=== PATIENT | male | born 1965 | race Caucasian/White ===

== ENCOUNTER 2016-11-20 14:55 | Inpatient (IN) | payer MEDICAID ==
[~2016-11-20] VITALS: Ht 170.2 cm; Wt 117.0 kg
--- NOTE | 2016-11-20 16:19 | NUR ---
AWAKE ALERT ORIENTED, STATED HAD BUG BITE ON THURSDAY TO LT INGUINAL AREA ,NOW SWOLLED AND POSSIBLE FORMING ABSCESS,PAINFUL ,
[2016-11-20 17:28] LABS: CALCIUM 8.9 mg/dL (8.5-10.1); CARBON DIOXIDE 27.1 mmol/L (21-32); CHLORIDE SERUM 100 mmol/L (98-107); CREATININE SERUM 1.3 mg/dL (0.7-1.3); GFR1 > 60 mL/min; GLUCOSE SERUM 153 mg/dL (74-106); POTASSIUM SERUM 3.9 mmol/L (3.5-5.1); SODIUM SERUM 134 mmol/L (136-145)
[2016-11-20 17:33] LABS: ALBUMIN 3.3 g/dL (3.4-5.0); ALKALINE PHOSPHATASE 80 U/L (46-116); ALT/SGPT 23 U/L (16-63); AST/SGOT 11 U/L (15-37); BILIRUBIN TOTAL 1.7 mg/dL (0.20-1.00)
[2016-11-20 17:34] LABS: PLATELET COUNT 217 x10^3mcL (130-400); RED CELL DISTRIBUTION WIDTH 12.5 % (11.5-14.5)
--- NOTE | 2016-11-20 17:35 | NUR ---
IV ESTABLISHED, BLOOD DRAWN EARLIER BY LAB,
--- NOTE | 2016-11-20 17:38 | NUR ---
ANTIBIOTICS STARTED CLEAOCIN,
[2016-11-20 17:57] LABS: BAND NEUTROPHIL 0 % (0-10); BASOPHIL 0 % (0-2); MONOCYTE 5 % (0-7); SEGMENTED NEUTROPHILS 87 % (37-75); rbc morphology (normal/abnorm) NORMAL (NORMAL)
[2016-11-20 17:58] LABS: PLATELET MORPHOLOGY PLATELETS NORMAL
[2016-11-20 19:40] LABS: CHOLESTEROL/HDL RATIO 3.5; MAGNESIUM 2.1 mg/dL (1.8-2.4); PHOSPHOROUS 3.3 mg/dL (2.5-4.9)
[2016-11-20 19:46] LABS: T3 TOTAL 1.05 ng/mL
[2016-11-20 20:14] LABS: FREE T4 1.04 ng/dL (0.76-1.46); FREE THYROXINE INDEX 2.6 ug/dL (1.4-4.5); T4(THYROXINE) 7.7 ug/dL (4.7-13.3)
--- NOTE | 2016-11-20 21:14 | NUR ---
REPORT GIVEN TO THERESA
--- NOTE | 2016-11-20 21:33 | NUR ---
REC'D PT FROM ER VIA [facility]. PT IS AAOX4. TELE #3 ST WITH ELEVATED T-WAVE. JJ=[id number]. LUNG SOUNDS CLEAR. NO SOB NOTED. CELLULITIS NOTED TO LEFT GROIN. PICTURE TAKEN. IV NOTED TO LH. INTACT AND PATENT. ORIENTED PT TO CALL LIGHT. BED IN LOWEST. WILL ENDORSE TO PRIMARY RN.
[2016-11-20 21:47] VITALS: BP 148/79
[2016-11-20 22:00] VITALS: BP 140/67
--- NOTE | 2016-11-20 23:30 | NUR ---
STARTED ON IVF NS AT 100CC/HR VIA PERIPHERAL LINE AT THE LEFT HAND TOLERATING WELL. IV SITE CLEAR AND INTACT. NO S/S OF INFILTRATION.
--- NOTE | 2016-11-21 00:50 | NUR ---
STARTED ON ATB IVPB FOR MANAGEMENT OF LEFT GROIN CELLULITIS WITHOUT ADVERSE REACTION NOTED.
[2016-11-21 06:22] LABS: PLATELET COUNT 211 x10^3mcL (130-400); RED CELL DISTRIBUTION WIDTH 12.4 % (11.5-14.5)
[2016-11-21 06:23] LABS: CALCIUM 8.9 mg/dL (8.5-10.1); CARBON DIOXIDE 27.6 mmol/L (21-32); CHLORIDE SERUM 101 mmol/L (98-107); CREATININE SERUM 1.1 mg/dL (0.7-1.3); GFR1 > 60 mL/min; GLUCOSE SERUM 165 mg/dL (74-106); POTASSIUM SERUM 4.4 mmol/L (3.5-5.1); SODIUM SERUM 138 mmol/L (136-145)
--- NOTE | 2016-11-21 06:25 | NUR ---
BLOOD SUGAR CHECKED 146MG/DL. NO INSULIN COVERAGE PER PROTOCOL INSTRUCTED TO BE NPO FOR POSSIBB SURGERY TODAY. NO ADVERSE REACTION NOTED FROM ATB THERAPY. URINE SPECIMEN COLLECTED FOR UA AND SENT TO LAB. ALL NEEDS ATTENDED.
[2016-11-21 07:22] VITALS: BP 134/81
--- NOTE | 2016-11-21 07:30 | NUR ---
PT RECEIVED FROM NIGHT NURSE IN NO ACUTE DISTRESS. PT ASLEEP IN BED. RESPIRATIONS EVEN AND UNLABORED. FLUIDS RUNNING AT BEDSIDE. BED IN LOWEST POSITION. CALL LIGHT WITHIN REACH. WILL CONTINUE TO MONITOR.
[2016-11-21 09:39] LABS: BAND NEUTROPHIL 38 % (0-10); BASOPHIL 0 % (0-2); MONOCYTE 17 % (0-7); SEGMENTED NEUTROPHILS 38 % (37-75)
[2016-11-21 09:41] LABS: PLATELET MORPHOLOGY PLATELETS NORMAL; rbc morphology (normal/abnorm) NORMAL (NORMAL)
[2016-11-21 09:44] VITALS: BP 135/88
[2016-11-21 11:05] LABS: UA SPECIFIC GRAVITY 1.025 (1.005-1.035); microscopic required? YES; urine erythrocyte NEGATIVE (NEGATIVE)
--- NOTE | 2016-11-21 13:17 | NUR ---
PT IS SITTING UP IN BED IN NO ACUTE DISTRESS. FAMILY AT BEDSIDE. IVF INFUSING. STATES PAIN IS TOLERABLE, RATES PAIN 2/10. BED IS IN LOWEST POSITION. CALL LIGHT WITHIN REACH. WILL CONTINUE TO MONITOR.
[2016-11-21 13:30] VITALS: BP 147/86
[2016-11-21 17:53] VITALS: BP 114/71
--- NOTE | 2016-11-21 19:05 | NUR ---
PT RESTING IN BED. NO ACUTE DISTRESS. C/O MILD L GROIN DISCOMFORT BUT TOLERABLE AT THIS TIME. REDNESS AND SWELLING TO L GROIN, NO DRAINAGE. LADIES SUIT OPERATOR. IVF INFUSING. BED IN LOWEST POSITION, CALL LIGHT WITHIN REACH. WILL ENDORSE TO INCOMING SHIFT.
--- NOTE | 2016-11-21 19:10 | NUR ---
NURSING CO-SIGN THE DOCUMENTATION ENTERED BY THE RN SARAH HAS BEEN REVIEWED. REVIEWED/CO-SIGNED BY: Ginger Shultz DOCUMENTATION DONE BY: ROSALIA REYNA
--- NOTE | 2016-11-21 19:30 | NUR ---
PT SI ALERT AND ORIENTED X 4. PLEASANT AND COOPERATIVE.CLEAR LUNG SOUNDS ON AUSCULTATIONS BILATERALLY. ROOM AIR. CXR- CARDIOMEGALY. STILL HAS IV NS AT 100 ML PER HOUR INFUSING WELL IN THE LEFT HAND. STILL GETTING CLEOCIN AND LEVAQUIN IVPB. WITHOUT ADVERSE REACTION NOTED. NOTED LEFT INNER GROIN AREA CELLULITIS REDDISH, INFLAMED. APPLIED TOPICAL CREAM. PT ABLE TO AMBULATE. WILL MONITOR.
--- NOTE | 2016-11-21 20:30 | NUR ---
DR. SCHOFIELD CAME AND CONSULTED PT AND LOOK AT THE LEFT GROIN CELLULITS THAT PT SPECIFIED THAT IT WAS BITTEN BY SPIDER. DR. SCHOFIELD COLLECTED ABSCESS SPECIMEN FROM THE SITE AND OBTAINED SMALL AMOUNT AND WAS SENT IT TO LAB FOR ABSCESS CULTURE AND GRAM STAIN BY ASPIRATING SOME DRAINAGE FROM THE SITE. PT TOLERATED WELL.
--- NOTE | 2016-11-21 21:31 | NUR ---
PT C/O MODERATE LEFT GROIN CELLULITIS PAIN 11/06. MEDICATED WITH MORPHINE 2MG IVPUSH. WILL MONITOR.
[2016-11-21 21:58] VITALS: BP 135/75
--- NOTE | 2016-11-22 05:26 | NUR ---
PT IS NPO FOR THE PROCEDURE THIS MORNING. I AND D FO THE ABCESS OF LEFT GROIN AREA. STILL HAS IV NS AT 100 ML PER HOUR INFUSING WELL. RESTARTED ANOTHER IV IN THE RIGHT WRIST. ANGIOCATH GUAGE 20. RESTARTED IV NS AT 100 ML PER HOUR INFUSING WELL. WILL MONITOR.
[2016-11-22 05:46] VITALS: BP 131/78
[2016-11-22 07:09] LABS: BASOPHIL % 1.2 % (0-2); PLATELET COUNT 224 x10^3mcL (130-400); RED CELL DISTRIBUTION WIDTH 12.1 % (11.5-14.5)
--- NOTE | 2016-11-22 07:30 | NUR ---
PT RECEIVED FROM NIGHT NURSE IN NO ACUTE DISTRESS. RESPIRATIONS EVEN AND UNLABORED. PT SLEEPING IN BED. IVF INFUSING AT BEDSIDE. BED IN LOWEST POSITION. CALL LIGHT WITHIN REACH. WILL CONTINUE TO MONITOR.
[2016-11-22 08:00] VITALS: BP 150/82
[2016-11-22 08:37] LABS: CALCIUM 8.4 mg/dL (8.5-10.1); CARBON DIOXIDE 27.9 mmol/L (21-32); CHLORIDE SERUM 103 mmol/L (98-107); CREATININE SERUM 0.9 mg/dL (0.7-1.3); GFR1 > 60 mL/min; GLUCOSE SERUM 135 mg/dL (74-106); POTASSIUM SERUM 4.3 mmol/L (3.5-5.1); SODIUM SERUM 135 mmol/L (136-145)
[2016-11-22 09:17] VITALS: BP 134/81
[2016-11-22 12:10] VITALS: BP 136/83
--- NOTE | 2016-11-22 13:50 | NUR ---
PT IS ASLEEP IN BED IN NO ACUTE DISTRESS. RESPIRATIONS EVEN AND UNLABORED. FLUIDS INFUSING AT BEDSIDE. BED IN LOWEST POSITION. CALL LIGHT WITHIN REACH. WILL CONTINUE TO MONITOR.
--- NOTE | 2016-11-22 16:11 | NUR ---
PT TAKEN DOWN TO OR BY OR NURSE VIA GOURNEY IN NO ACUTE DISTRESS.
--- NOTE | 2016-11-22 18:20 | NUR ---
UNABLE TO INSTRUCT PT ON INCENTIVE SPIROMETER DUE TO PT IN SURGERY AT THIS TIME, INCENTIVE SPIROMETER LEFT AT BED SIDE, WILL RETURN FOR TEACHING AND PROPER DEMONSTRATION.
[2016-11-22 18:45] VITALS: BP 146/89
--- NOTE | 2016-11-22 18:45 | NUR ---
PT BACK FROM OR. AWAKE, ALERT, AND ORIENTED. WITH PACKING, FLUFF DRESSING TO L GROIN, SLIGHTLY OPEN. C/O 6/10 PAIN, WILL MEDICATE ORDERED. VS: TEMP 98.7, RR 18, BP 146/89 (106), HR 92, O2 SAT 97% ON RA. BED IN LOWEST POSITION, CALL LIGHT WITHIN REACH. WILL CONTINUE TO MONITOR.
--- NOTE | 2016-11-22 20:14 | NUR ---
PT CURRENTLY RESTING IN BED, NO ACUTE DISTRESS. A/O X4. TELE #3 SHOWING SINUS RHYTHM, DENIES CHEST PAIN. PULSES PALPABLE IN ALL EXTREMITIES, LEFT GROIN EDEMA NOTED. LUNG SOUNDS CTA BILATERALLY. BOWEL SOUNDS ACTIVE, LAST BM 11/21/16. VOIDING WELL. AMBULATORY. S/P LEFT GROIN I&D, DRESSING INTACT, SMALL SEROSANGUINOUS DRAINAGE NOTED. DENIES PAIN AT THIS TIME. IV PATENT AND INTACT. BED IN LOWEST POSITION, SIDE RAILS UP X2, SCDS IN PLACE, CALL LIGHT WITHIN REACH. WILL CONTINUE TO MONITOR.
[2016-11-22 21:05] VITALS: BP 133/78
[2016-11-23 06:03] VITALS: BP 125/76
--- NOTE | 2016-11-23 06:03 | NUR ---
PT SLEPT PERIODICALLY THROUGHOUT NIGHT, NO ACUTE DISTRESS. ALL NEEDS MET AND ATTENDED TO. NO SIGNIFICANT CHANGES. IV PATENT AND INTACT. MEDICATED PAIN PER EMAR. BED IN LOWEST POSITION, SIDE RAILS UP X2, SCDS IN PLACE, CALL LIGHT WITHIN REACH. WILL ENDORSE CARE TO ONCOMING NURSE.
[2016-11-23 06:49] LABS: CALCIUM 8.7 mg/dL (8.5-10.1); CARBON DIOXIDE 27.5 mmol/L (21-32); CHLORIDE SERUM 101 mmol/L (98-107); CREATININE SERUM 0.9 mg/dL (0.7-1.3); GFR1 > 60 mL/min; GLUCOSE SERUM 132 mg/dL (74-106); POTASSIUM SERUM 4.1 mmol/L (3.5-5.1); SODIUM SERUM 136 mmol/L (136-145)
[2016-11-23 06:57] LABS: BASOPHIL % 0.9 % (0-2); PLATELET COUNT 259 x10^3mcL (130-400); RED CELL DISTRIBUTION WIDTH 12.1 % (11.5-14.5)
--- NOTE | 2016-11-23 07:25 | NUR ---
PT RECEIVED FROM NIGHT NURSE IN NO ACUTE DISTRESS. PT RESTING IN BED. RESPIRATIONS EVEN AND UNLABORED. DENIES PAIN AT THIS TIME. BED IN LOWEST POSITION, CALL LIGHT WITHIN REACH. IVF INFUSING AT BEDSIDE. WILL CONTINUE TO MONITOR.
[2016-11-23 08:00] VITALS: BP 148/82
[2016-11-23 09:10] VITALS: BP 131/84
--- NOTE | 2016-11-23 10:30 | NUR ---
L GROIN SURGICAL SITE IRRIGATED WITH NS AND REPACKED, DRESSING APPLIED ORDERED. C/D/I. PT TOLERATED WELL. WILL CONTINUE TO MONITOR.
--- NOTE | 2016-11-23 11:00 | NUR ---
DR. DAN AT BEDSIDE.
--- NOTE | 2016-11-23 13:20 | NUR ---
PT IS SITTING UP IN CHAIR EATING IN NO ACUTE DISTRESS. RESPIRATIONS EVEN AND UNLABORED. STATES HE HAS NO PAIN AT THIS TIME. IVF INFUSING. CALL LIGHT WITHIN REACH. WILL CONTINUE TO MONITOR
[2016-11-23 16:05] VITALS: BP 123/71
--- NOTE | 2016-11-23 18:57 | NUR ---
PT SITTING UP IN CHAIR EATING DINNER IN NO ACUTE DISTRESS. RESPIRATIONS EVEN AND UNLABORED ON RA. DENIES PAIN AT THIS TIME. CALL LIGHT WITHIN REACH. IVF INFUSING. WILL ENDORSE TO NIGHT NURSE.
--- NOTE | 2016-11-23 20:07 | NUR ---
PT CURRENTLY SITTING UP IN CHAIR, NO ACUTE DISTRESS. A/O X4. NO TELE, MED/SURG. DENIES CHEST PAIN. PULSES PALPABLE IN ALL EXTREMITIES, LEFT GROIN EDEMA NOTED. LUNG SOUNDS CTA BILATERALLY, DENIES SOB. BOWEL SOUNDS ACTIVE, LAST BM 11/23/16. VOIDING WELL. AMBULATORY. S/P LEFT GROIN I&D, DRESSING INTACT. DENIES PAIN AT THIS TIME. IV PATENT AND INTACT. BED IN LOWEST POSITION, SIDE RAILS UP X2, SCDS IN PLACE, CALL LIGHT WITHIN REACH. WILL CONTINUE TO MONITOR.
[2016-11-23 21:01] VITALS: BP 131/86
--- NOTE | 2016-11-23 22:29 | NUR ---
LEFT GROIN DRESSING CHANGE APPLIED ORDERED. PT TOLERATED PROCEDURE WELL. WILL CONTINUE TO MONITOR.
[2016-11-24 05:27] VITALS: BP 136/90
[2016-11-24 07:22] LABS: BASOPHIL % 0.7 % (0-2); PLATELET COUNT 278 x10^3mcL (130-400); RED CELL DISTRIBUTION WIDTH 12.2 % (11.5-14.5)
--- NOTE | 2016-11-24 07:30 | NUR ---
PT RECEIVED AAOX4, CONVERSING WELL IN FULL SENTENCES. RESP EVEN AND UNLABORED ON RA. DENIES ANY SOB OR COUGH. DENIES ANY CP OR PRESSURE. IV ON RFA INTACT, INFUSING NS AT 100ML/HR. ABD ROUND/SOFT WITH ACTIVE BS IN ALL QUADS. PT REPORTS FORMED BM THIS AM. VOIDING WELL WITH URINAL, CLEAR YELLOW URINE. AMBULATING INDEPENDENTLY. DENIES ANY PAIN OR DISCOMFORT AT THIS TIME. CALL LIGHT WITHIN REACH. WILL CONTINUE TO MONITOR.
[2016-11-24 09:40] VITALS: BP 151/87
--- NOTE | 2016-11-24 11:12 | NUR ---
DRESSING CHANGE ON LEFT GROIN DONE ORDERED. PREMEDICATED WITH NORCO ORDERED PRN, SEE EMAR. OLD DRESSING NOTED WITH MODERATE AMOUNT OF SEROSANGUINOUS DRAINAGE ON ABD PAD. OLD PACKING REMOVED. REAPPLIED NEW IODOFORM PACKING, DRY GAUZE, AND COVERED WITH DRY DRESSING. PT TOLERATED WELL WITHOUT COMPLAINTS. BASIC WOUND CARE TEACHING DONE, PT VERBALIZED UNDERSTANDING OF TEACHINGS. ALL QUESTIONS ADDRESSED AT THIS TIME. DENIES ANY OTHER NEEDS. CALL LIGHT WITHIN REACH. WILL CONTINUE TO MONITOR.
--- NOTE | 2016-11-24 15:30 | NUR ---
PT AMBULATING IN ROOM. TOLERATING WELL WITH NO C/O PAIN.
--- NOTE | 2016-11-24 16:31 | NUR ---
PT SITTING UP IN CHAIR. TOLERATING WELL WITHOUT COMPLAINTS. DENIES ANY PAIN OR DISCOMFORT AT THIS TIME. CALL LIGHT WITHIN REACH.
[2016-11-24 16:33] VITALS: BP 144/85
--- NOTE | 2016-11-24 19:35 | NUR ---
PT IS AAOX4. LUNG SOUNDS ARE CTA ON RA. MED/SURG PT. ABD IS SOFT, ROUND, NON-TENDER. THERE IS A WOUND, POST-OP TO THE LEFT GROIN, CURRENTLY PACKED WITH IODIFORM, 4X4 GAUZE, AND AN ISLAND DRESSING, CDI. THE PT HAS AN IV IN THE RFA INFUSING 100 ML/HR NS. THE BED IS IN THE LOWEST POSITION, CALL LIGHT WITHIN REACH. PT CURRENTLY SITTING IN CHAIR. WILL CONTINUE TO MONITOR.
--- NOTE | 2016-11-24 21:26 | NUR ---
CHANGED LEFT GROIN DRESSING. REMOVED SEROSANGUNOUS GAUZE AND IODOFORM. USED SALINE TO CLEAN OUT WOUND, REPACKED WITH 1/2 INCH IODOFORM. PLACED 4X4 GAUZE ON TOP AND REINFORCED WITH 4X4 ISLAND DRESSING. PREMEDICATED WITH NORCO PRIOR TO PROCEDURE. PT TOLERATED WELL. EDUCATED THE PT ON HWO TO PERFORM THE PROCEDURE.
[2016-11-24 21:40] VITALS: BP 141/83
--- NOTE | 2016-11-25 00:34 | NUR ---
PT IS RESTING COMFORTBLY. NO ACUTE DISTRESD NOTED. EVEN. UNLABORED BREATHING PRESENT. WILL CONTINUE TO MONITOR.
[2016-11-25 05:52] VITALS: BP 137/83
[2016-11-25 08:50] VITALS: BP 158/89
--- NOTE | 2016-11-25 10:30 | NUR ---
PT DEMONSTRATED PROPER WOUND DRESSING CHANGE TECHNIQUE AND PROPER KNOWLEDGE IN WOUND CARE
[2016-11-25] MEDS ORDERED: NORCO1 TA2 PO (10:39)
[2016-11-25] MEDS ORDERED: COL100 PO (10:40)
[2016-11-25] MEDS ORDERED: BACTRIM1 TAB PO (10:41)
[2016-11-25] MEDS ORDERED: LAC PO (10:42)
[2016-11-25 12:40] VITALS: BP 158/89
--- NOTE | 2016-11-25 14:10 | NUR ---
D/C INSTRUCTION DONE. IV HAS BEEN D/C
== END 2016-11-25 14:13 | disposition home or self-care (01) | DRG 710 ==
LOC: ED 14:55 → DU 18:50 → MU 11-24 08:35
PROVIDERS: Emergency Medicine; Family Medicine; Surgery; ADMIT Family Medicine
PROC: 0J9C0ZZ Drainage of Pelvic Region Subcutaneous Tissue and Fascia, Open Approach (ICD-10-PCS; principal; 2016-11-22 09:45)
DX: A41.9 Sepsis, unspecified organism (principal); N17.0 Acute kidney failure with tubular necrosis; D68.69 Other thrombophilia; Z68.41 Body mass index [BMI] 40.0-44.9, adult; E44.1 Mild protein-calorie malnutrition; E11.65 Type 2 diabetes mellitus with hyperglycemia; L03.314 Cellulitis of groin; N20.0 Calculus of kidney; I86.1 Scrotal varices; B35.6 Tinea cruris; E66.01 Morbid (severe) obesity due to excess calories; E80.6 Other disorders of bilirubin metabolism; Z87.442 Personal history of urinary calculi
CPT/HCPCS: 82962; 83880; 84439; J1956; J2001; J2250; J2270; J3370; J3490; J7030; Q0092

== ENCOUNTER 2017-03-13 13:28 | Emergency (ER) | payer SELFPAY ==
[~2017-03-13] VITALS: Ht 172.7 cm; Wt 119.3 kg
[~2017-03-13 13:28] MED LIST: BACTRIM1 TAB PO; COL100 PO; LAC PO; NORCO1 TA2 PO
[2017-03-13 13:33] VITALS: Ht 172.7 cm; Wt 119.3 kg
[2017-03-13 14:35] LABS: PLATELET COUNT 241 x10^3mcL (130-400); RED CELL DISTRIBUTION WIDTH 12.2 % (11.5-14.5)
[2017-03-13 14:37] LABS: CALCIUM 8.9 mg/dL (8.5-10.1); CARBON DIOXIDE 25.3 mmol/L (21-32); CHLORIDE SERUM 102 mmol/L (98-107); CREATININE SERUM 1.2 mg/dL (0.7-1.3); GFR1 > 60 mL/min; GLUCOSE SERUM 183 mg/dL (74-106); POTASSIUM SERUM 3.7 mmol/L (3.5-5.1); SODIUM SERUM 137 mmol/L (136-145)
[2017-03-13 15:00] LABS: UA SPECIFIC GRAVITY >=1.030 (1.005-1.035); microscopic required? YES; urine erythrocyte TRACE (NEGATIVE)
[2017-03-13 15:07] LABS: ALKALINE PHOSPHATASE 80 U/L (46-116); ALT/SGPT 23 U/L (16-63); AST/SGOT 9 U/L (15-37); TOTAL PROTEIN, SERUM 7.9 g/dL (6.4-8.2)
[2017-03-13 15:13] LABS: ALBUMIN 3.1 g/dL (3.4-5.0)
[2017-03-13 15:14] LABS: CK-MB < 0.5 ng/mL (0-3.6); CREATINE KINASE 56 U/L (39-308)
[2017-03-13 15:15] LABS: BAND NEUTROPHIL 8 % (0-10); BASOPHIL 0 % (0-2); METAMYELOCTE 1 % (0-2); MONOCYTE 6 % (0-7); SEGMENTED NEUTROPHILS 71 % (37-75)
[2017-03-13 15:17] LABS: rbc morphology (normal/abnorm) ABNORMAL (NORMAL)
[2017-03-13 18:55] VITALS: BP 145/88
== END 2017-03-13 18:55 | disposition home or self-care (01) ==
LOC: ED 13:28
PROVIDERS: Emergency Medicine
DX: N49.2 Inflammatory disorders of scrotum (principal); Z88.0 Allergy status to penicillin
CPT/HCPCS: 83880; J1956; Q0092

== ENCOUNTER 2017-03-14 06:08 | Emergency (ER) | payer SELFPAY ==
[~2017-03-14] VITALS: Ht 172.7 cm; Wt 121.6 kg
[2017-03-14 06:14] VITALS: Ht 172.7 cm; Wt 121.6 kg
[2017-03-14 07:41] VITALS: BP 138/89
== END 2017-03-14 07:42 | disposition home or self-care (01) ==
LOC: ED 06:08
DX: L02.215 Cutaneous abscess of perineum (principal); Z88.0 Allergy status to penicillin
CPT/HCPCS: J2001

== ENCOUNTER 2017-03-16 07:29 | Emergency (ER) | payer SELFPAY ==
[~2017-03-16] VITALS: Ht 172.7 cm; Wt 122.0 kg
[2017-03-16 07:41] VITALS: Ht 172.7 cm; Wt 122.0 kg
[2017-03-16 08:56] VITALS: BP 140/101
== END 2017-03-16 08:56 | disposition home or self-care (01) ==
LOC: ED 07:29
DX: N49.2 Inflammatory disorders of scrotum (principal); I10 Essential (primary) hypertension; Z88.0 Allergy status to penicillin